=== PATIENT | female | born 1955 | race Caucasian/White ===

== ENCOUNTER → 2016-04-29 19:42 | Outpatient (CLI) | payer MEDICARE ==
[2009-11-26 06:30] VITALS: BMI 32.4
== END | disposition home or self-care (01) ==
LOC: D.SLEEP 19:42
DX: G47.33 Obstructive sleep apnea (adult) (pediatric) (principal)

== ENCOUNTER → 2016-05-25 19:25 | Outpatient (CLI) | payer MEDICARE ==
[2009-11-26 06:30] VITALS: BMI 32.4
== END | disposition home or self-care (01) ==
LOC: D.SLEEP 19:25
DX: G47.33 Obstructive sleep apnea (adult) (pediatric) (principal)

== ENCOUNTER → 2016-06-15 15:17 | Outpatient (CLI) | payer MEDICARE ==
[2009-11-26 06:30] VITALS: BMI 32.4
[2016-06-15 16:08] LABS: % SATURATION 19 % (15-55); IRON 69 ug/dl (35-150); TOTAL IRON BIND CAPACITY 356 ug/dl (260-445); UNSAT IRON BIND CAPACITY 287 ug/dl (150-375)
== END | disposition home or self-care (01) ==
LOC: D.LABREF 15:17
PROVIDERS: Internal Medicine Gastroenterology
DX: D50.9 Iron deficiency anemia, unspecified (principal)

== ENCOUNTER → 2016-09-22 13:07 | Outpatient (CLI) | payer MEDICARE ==
[2009-11-26 06:30] VITALS: BMI 32.4
== END | disposition home or self-care (01) ==
LOC: D.RAD 09-21 13:00
DX: T17.928A Food in respiratory tract, part unspecified causing other injury, initial encounter (principal)

== ENCOUNTER → 2017-01-07 08:12 | Outpatient (CLI) | payer MEDICARE ==
[2009-11-26 06:30] VITALS: BMI 32.4
== END | disposition home or self-care (01) ==
LOC: D.LAB 12-08 13:00 → D.RAD 12-08 13:00 → D.RT 12-08 13:00
DX: R06.09 Other forms of dyspnea (principal)

== ENCOUNTER → 2018-08-03 19:52 | Outpatient (CLI) | payer MEDICARE ==
[2009-11-26 06:30] VITALS: BMI 32.4
== END | disposition home or self-care (01) ==
LOC: D.MAMMO 15:30
PROVIDERS: ATTEND Family Medicine
DX: Z12.31 Encounter for screening mammogram for malignant neoplasm of breast (principal)

== ENCOUNTER → 2018-09-14 17:34 | Outpatient (CLI) | payer MEDICARE | END | disposition home or self-care (01) | LOC: D.MAMMO 17:34 | DX: R92.8 Other abnormal and inconclusive findings on diagnostic imaging of breast (principal) ==